=== PATIENT | male | born 1945 | race Caucasian/White ===

== ENCOUNTER → 2016-09-26 | Outpatient (CLI) | payer BC ==
--- NOTE | 2016-09-28 18:20 | SLEEPCENT ---
DATE OF PROCEDURE: 09/26/2016 ORDERED BY: Toma Lam Nocturnal polysomnography was performed for evaluation of sleep apnea syndrome symptoms in this patient who is experiencing excessive somnolence and nonrestorative sleep and with comorbidities of hypertension and ischemic heart disease. 6 hours and 25 minutes of data were reviewed. There were 340 minutes of sleep identified. Sleep latency was short at 21 minutes. Rapid eye movement (REM) latency was short at 87 minutes. Sleep architecture showed fair progression but fragmentation was seen early in the study. The overall sleep efficiency was 88.8%. Patient's EKG showed an irregular rhythm with a average rate of 74 beats per minute. EEG showed normal wave forms for wake and sleep. There were 138 respiratory events identified of 10 seconds in duration or greater for an apnea-hypopnea index of 24.4. The events were primarily obstructive, more frequent but not exclusive to the supine posture. Arousals from respiratory events occurred 5.5 times per hour. Oxygen desaturations were seen in the upper 80's. Remaining measures of sleep physiology were normal. IMPRESSION: Obstructive sleep apnea syndrome (G47.33). Apnea-hypopnea index 24.4. RECOMMENDATIONS: Patient should be encouraged to return to the sleep disorder center for pressure therapy. In the interim, alcohol and sedative avoidance should be practiced, and caution exercised during the operation of motor vehicles.
== END ==
LOC: M SLEEP 19:31
PROVIDERS: ATTEND Nurse Practitioner Adult Health
DX: G47.30 Sleep apnea, unspecified (principal)

== ENCOUNTER → 2017-01-28 | Outpatient (CLI) | payer BC ==
--- NOTE | 2017-02-01 18:56 | SLEEPCENT ---
DATE OF PROCEDURE: 01/28/2017 ORDERED BY: Toma Lam Nocturnal polysomnography was performed for titration of pressure therapy in this patient with obstructive sleep apnea syndrome. Apnea hypopnea index of 24.4. Auto CPAP had been attempted without success. For testing, the patient was fit with a ResMed Quattro full face mask of small size, 4 cm of water pressure were applied to the circuit and the lights were extinguished. 8 hours and 19 minutes of data were reviewed. There were 441 minutes of sleep identified. Sleep latency was short at 9.5 minutes. Rapid eye movement (REM) latency was normal at 70 minutes. Sleep architecture ws fair with some fragmentation. There were three to four REM periods appreciated. Overall sleep efficiency was 90.8%. The EKG showed a sinus rhythm with occasional PACs. Some respiratory variability was seen. Average heart rate 76 beats per minute. Heart rate range 60-80 beats per minute. EEG showed normal wave forms for wake and sleep stages. No focal events were identified. Persistence of respiratory events prompted an increase in CPAP pressure and despite optimal mask fit and minimal air leak the patient required a change to a bilevel device. Best sleep however was seen on a CPAP pressure of +12. There was some limb activity appreciated but limb movement arousals were few at 2.4 per hour. IMPRESSION: Obstructive sleep apnea syndrome (G47.33). RECOMMENDATIONS: Nightly use of pressure therapy at 12 cm of water should be sufficient to address the patient's respiratory events.
== END ==
LOC: M SLEEP 20:00
PROVIDERS: ATTEND Nurse Practitioner Adult Health
DX: G47.33 Obstructive sleep apnea (adult) (pediatric) (principal)

== ENCOUNTER → 2018-07-16 | Outpatient (CLI) | payer MEDICARE ==
[~2018-07-16] MED LIST: ISOVUE-370 76% 100ML VIAL (Q9967) As Ordered
== END ==
LOC: M RAD 10:27
DX: R91.8 Other nonspecific abnormal finding of lung field (principal); I74.5 Embolism and thrombosis of iliac artery; I71.4 Abdominal aortic aneurysm, without rupture; K55.1 Chronic vascular disorders of intestine
CPT/HCPCS: Q9967

== ENCOUNTER → 2019-01-25 | Outpatient (CLI) | payer MEDICARE ==
[2019-01-25 13:39] LABS: APPEARANCE, URINE HAZY (CLEAR); BACTERIA, URINE AUTO NEGATIVE (NEGATIVE); BILIRUBIN, URINE AUTO NEGATIVE (NEGATIVE); BLOOD, URINE BLOOD 1+ (NEGATIVE); COLOR, URINE YELLOW (YELLOW); GLUCOSE, URINE (UA) AUTO NEGATIVE (NEGATIVE); KETONE, URINE AUTO TRACE mg/dL (NEGATIVE); LEUKOCYTE ESTERASE, URINE AUTO NEGATIVE (NEGATIVE); MUCUS, URINE SMALL (NEGATIVE); NITRITE, URINE AUTO NEGATIVE (NEGATIVE); PROTEIN, URINE AUTO NEGATIVE (NEGATIVE); RBC, URINE AUTO 5 /HPF (0-3); SQUAMOUS EPITHELIAL CELL UR AU 0 /HPF (0-6); URIC ACID CRYSTALS SMALL; WBC, URINE AUTO 1 /HPF (0-3)
--- NOTE | 2019-01-25 13:44 | REP ---
KUB: SINGLE VIEW. HISTORY: Kidney stone. Comparison is made with CT imaging from July 16, 2018. FINDINGS: Bowel gas pattern is normal. Psoas margins and flank stripes are intact. No mass, organomegaly, or pathologic calcification is seen. There appear to be tiny calcific densities superimposed on the left kidney and possibly the right. No ureteral stone is seen. No evidence of bladder calculus. IMPRESSION: Tiny calcific densities overlie the left kidney, may be intrarenal calculi. Electronically Signed by Abhijeet Miner MD 01/25/2019 03:12 P
== END ==
LOC: M SMT 10:52
PROVIDERS: ATTEND Nurse Practitioner Family
DX: N40.0 Benign prostatic hyperplasia without lower urinary tract symptoms (principal); N20.0 Calculus of kidney; Z87.898 Personal history of other specified conditions
CPT/HCPCS: 36415; 51798; 74018; 81001; 87086; G0103; G0463

== ENCOUNTER → 2019-07-29 | Outpatient (REF) | payer MEDICARE ==
[2019-07-29 13:41] LABS: APPEARANCE, URINE CLEAR (CLEAR); BACTERIA, URINE AUTO NEGATIVE (NEGATIVE); BILIRUBIN, URINE AUTO NEGATIVE (NEGATIVE); BLOOD, URINE BLOOD 2+ (NEGATIVE); CALCIUM OXALATE CRYSTALS SMALL; COLOR, URINE YELLOW (YELLOW); GLUCOSE, URINE (UA) AUTO NEGATIVE (NEGATIVE); KETONE, URINE AUTO NEGATIVE (NEGATIVE); LEUKOCYTE ESTERASE, URINE AUTO NEGATIVE (NEGATIVE); MUCUS, URINE SMALL (NEGATIVE); NITRITE, URINE AUTO NEGATIVE (NEGATIVE); PROTEIN, URINE AUTO NEGATIVE (NEGATIVE); RBC, URINE AUTO 9 /HPF (0-3); SPECIFIC GRAVITY URINE AUTO 1.014 (1.002-1.035); SQUAMOUS EPITHELIAL CELL UR AU 0 /HPF (0-6); UROBILINOGEN, URINE AUTO 0.2 mg/dL (0.0-2.0); WBC, URINE AUTO 2 /HPF (0-3)
== END ==
LOC: M SMT 13:00
PROVIDERS: ATTEND Nurse Practitioner Family
DX: R31.29 Other microscopic hematuria (principal)
CPT/HCPCS: 51798; 81001; 87086; 88108; G0463

== ENCOUNTER → 2019-08-12 | Outpatient (CLI) | payer MEDICARE ==
[~2019-08-12] MED LIST changes: -ISOVUE-370 76% 100ML VIAL (Q9967) As Ordered; +ISOVUE-370 76% 100ML VIAL (Q9967) As Ordered ONE
--- NOTE | 2019-08-12 11:21 | REP ---
Clinical: Microscopic hematuria. Technique: Axial precontrast, contrast enhanced, and delayed images of the abdomen and pelvis using 100 ml Isovue 370 intravenous contrast material. Findings: Kidneys demonstrate few small punctate nonobstructing to renal calculi measuring up to 2 mm (left greater than right). Few small subcentimeter bilateral renal cysts measure up to 8 mm in left kidney. No renal mass lesion. Kidneys demonstrate symmetric enhancement and excretion patterns. No hydronephrosis. The bilateral ureters and bladder appear relatively normal. Prostate gland is mildly enlarged measuring 4.1 cm diameter with mild mass effect on the base of the bladder noted. Liver, spleen, pancreas, gallbladder, and bilateral adrenal glands are normal. The enteric system is without obstruction or acute inflammatory process. Scattered sigmoid diverticula noted without acute diverticulitis. Pelvis demonstrates mild prostatomegaly with mass effect on the base of the bladder. No ascites. No free air. No adenopathy. Atherosclerotic changes to the aorta and vasculature without aneurysm or dissection. Osseous structures demonstrate degenerative changes. Impression: 1. Few nonobstructing intrarenal calculi up to 2 mm (left greater than right) and few bilateral subcentimeter cysts up to 8 mm in left kidney. 2. Scattered sigmoid diverticula. 3. Prostatomegaly with mass effect on the base of the bladder. Electronically Signed by Hermilo Duncan MD 08/12/2019 11:13 A
== END ==
LOC: M RAD 10:06
PROVIDERS: ATTEND Nurse Practitioner Family
DX: N20.0 Calculus of kidney (principal)
CPT/HCPCS: 74178; Q9967

== ENCOUNTER → 2020-03-28 | Outpatient (CLI) | payer MEDICARE | LOC: M LABSMTC 10:05 | PROVIDERS: ATTEND Internal Medicine Cardiovascular Disease | DX: Z03.818 Encounter for observation for suspected exposure to other biological agents ruled out (principal); Z11.59 Encounter for screening for other viral diseases | CPT/HCPCS: C9803; U0003 ==

== ENCOUNTER → 2020-06-18 | Outpatient (CLI) | payer MEDICARE | LOC: M LABSMTC 10:49 | PROVIDERS: ATTEND Internal Medicine Cardiovascular Disease | DX: Z01.812 Encounter for preprocedural laboratory examination (principal); Z11.59 Encounter for screening for other viral diseases; Z20.828 Contact with and (suspected) exposure to other viral communicable diseases ==

== ENCOUNTER → 2020-09-21 | Outpatient (CLI) | payer MEDICARE ==
--- NOTE | 2020-09-21 15:01 | REPPI ---
INDICATION: KIDNEY STPNES COMPARISON: None. TECHNIQUE: Supine view of the abdomen and pelvis. FINDINGS: Evaluation for urinary tract calculi is limited and essentially incomplete due to significant overlying bowel gas and fecal material. No bowel obstruction. No organomegaly. No obvious significant abnormal calcification. No foreign body. IMPRESSION: Suboptimal evaluation for urinary tract calcifications. Consider noncontrast CT of the abdomen and pelvis if necessary. <Electronically signed by Hermilo Duncan > 09/21/20 [id number]
== END ==
LOC: M PLAIMG 09:22
PROVIDERS: ATTEND Urology
DX: N20.0 Calculus of kidney (principal)
CPT/HCPCS: 51798; 74018; G0463

== ENCOUNTER → 2020-11-30 | Outpatient (CLI) | payer MEDICARE ==
--- NOTE | 2020-12-01 10:36 | REP ---
INDICATION: ABNORMAL FINDING OF LUNG FIELD. COMPARISON: Comparison CT study [facility] July 24, 2020.. TECHNIQUE: Helical scanning is acquired. 3 mm axial images are generated. Coronal and sagittal MPR and coronal MIP images are generated. I logic protocol acquisition is acquired. 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 A right sided pacemaker power plant is seen in the subclavicular soft tissues. Axial images demonstrate that there are trans venous as well as trans pleural pacemaker leads the trans pleural pacemaker leads are on the left. There There are advanced emphysematous changes throughout the upper lobes and to a lesser extent in the lower lobes bilaterally. There are inspissated endobronchial secretions in the left lower lobe. There is a stable pleural based left lower lobe nodule measuring 5 mm. This is unchanged from prior abdominal CT images July 16, 2018. In the right lower lobe on page 73 of 117 in series 201 of today's study, there is a spiculated suspicious peribronchovascular pulmonary nodule measuring 16 x 13 x 18 mm in right to left by anteroposterior by craniocaudal dimension respectively. This was observed on the 07/24/2020 study. Today's study demonstrates a new nodular area of parenchymal density in the right lower lobe medially in the cardio vertebral angle. This nodular density measures 14 x 6 mm on transverse images and is displayed on page 67 through 71 of today's study. This was not apparent on July 24 2020 and therefore may be inflammatory. No other new nodule is seen. Smaller stable subcentimeter nodules are seen right middle lobe. And left lower lobe. There is no evidence of hilar or mediastinal mass or adenopathy. No pleural effusion is seen. Normal adrenal glands are observed. The visualized upper abdominal structures are unremarkable. There is mild bilateral gynecomastia.0 no bony destructive lesion is seen. IMPRESSION: 18 mm suspicious spiculated peribronchovascular pulmonary nodule right lower lobe rule out malignancy. There are other scattered subcentimeter pulmonary nodules bilaterally several of which are visible previously and unchanged. There is a new nodular opacity in the right lower lobe which may be inflammatory and there is evidence of bronchitis with inspissated endobronchial secretions in the left lower lobe. there is severe emphysema COPD. <Electronically signed by Isidoro Miner > 12/01/20 1038
== END ==
LOC: M RAD 12:57
PROVIDERS: ATTEND Internal Medicine Pulmonary Disease
DX: R91.1 Solitary pulmonary nodule (principal); R91.8 Other nonspecific abnormal finding of lung field

== ENCOUNTER → 2020-12-31 | Outpatient (CLI) | payer MEDICARE ==
[~2020-12-31] MED LIST changes: +ACET500T15 PO; +ASPI81TA26 PO; +BREO1INH3 INH; +CILO100T PO; +ELIQ5TAB PO; +FINA5TAB2 PO; +FLOM0.4C39 PO; -ISOVUE-370 76% 100ML VIAL (Q9967) As Ordered ONE; +LASI20TA3 PO; +LIDOCAINE 1% MDV 20ML VIAL As Ordered ONE; +LIDOCAINE 2% MDV 20ML VIAL As Ordered ONE; +LOSA50TA88 PO; +METO1TAB7 PO; +MIDAZOLAM INJ 2MG/2ML VIAL (J2250 PER 1MG) As Ordered ONE; +OMEP1CAP73 PO; +SIMV40TA20 PO; +SODIUM BICARBONATE 8.4% INJ 50MEQ 50 ML VIAL As Ordered ONE; +VENTAER INH; +flumazeniL 0.5 MG/5 ML VIAL As Ordered ONE
--- NOTE | 2020-12-31 10:24 | REP ---
INDICATION: POST RIGHT LUNG BIOPSY, 1 VIEW, PA EXPIRATION. COMPARISON: CT 11/30/2020. TECHNIQUE: Single expiratory view of the chest. FINDINGS: Right pneumothorax is visualized status post right lung biopsy. The air gap at the apex is approximately 4 cm. Heart is not enlarged. There are multiple sternal wires present. Metallic clips are seen in the superior left chest wall. IMPRESSION: Right pneumothorax status post right lung biopsy, the air gap at the apex is approximately 4 cm. <Electronically signed by Faustino Rowe > 12/31/20 1029
[2020-12-31 13:20] VITALS: BP 120/63
--- NOTE | 2020-12-31 15:52 | REP ---
INDICATION: POST RIGHT PNEUMO, 2 VIEW. COMPARISON: 12/31/2020 at 12:53 p.m.. TECHNIQUE: Two views chest. FINDINGS: There is a very small right apical pneumothorax unchanged, status post right lung biopsy. There is a small left pneumothorax, likely related to trans pleural pacemaker leads on the left. The lungs, heart and mediastinum are unchanged. IMPRESSION: Very small stable right apical pneumothorax status post right lung biopsy. There is a small left pneumothorax, likely related to trans pleural pacemaker leads. <Electronically signed by Faustino Rowe > 12/31/20 [id number]
--- NOTE | 2020-12-31 16:33 | REP ---
INDICATION: RLL NODULE. COMPARISON: None. TECHNIQUE: The procedure is performed by Rylie Francisco [facility], under the direct supervision of Dr. oRwe. The risks and benefits of the procedure were explained to the patient and informed consent was obtained both orally and written. Directly prior to the start of the procedure, a formal timeout was done in the exam room. The right lower lobe lung nodule was localized using CT guidance. Skin was prepped and draped in the usual sterile fashion. Five ml of 1% lidocaine 10 mg/ml was used as a local anesthetic. FINDINGS: Using CT guidance a 19/20 gauge coaxial needle biopsy system was inserted and advanced into the nodule. Six core biopsy samples were obtained and sent to the lab. CT images obtained directly after the biopsy demonstrated a pneumothorax. This was followed by serial chest x-rays, after the appropriate amount of monitored convalescence the patient was discharged from the department. The patient was giving specific instructions that if he should have any difficulty breathing to report directly to the ER. He will also be returning tomorrow for repeat chest x-ray. IMPRESSION: CT-guided right lower lobe lung nodule biopsy. <Electronically signed by Rylie Francisco > 12/31/20 1610 <Electronically signed by Faustino Rowe > 12/31/20 [id number]
--- NOTE | 2020-12-31 16:34 | REP ---
INDICATION: RIGHT PNEUMO, 1 VIEW. COMPARISON: 12/31/2020, 10:04 a.m. TECHNIQUE: Single expiratory view chest. FINDINGS: Previously noted right-sided pneumothorax has improved. There appears to be a very small right apical pneumothorax with an air gap of 1.4 cm. There is a vertical linear density inferiorly on the left. This could represent a skin fold or small left-sided pneumothorax. There are no other changes. IMPRESSION: Decreased right pneumothorax status post right lung biopsy. Air gap at the apex is 1.4 cm. Left inferior skin fold or pneumothorax. Follow-up radiograph will be performed. <Electronically signed by Faustino Rowe > 12/31/20 [id number]
== END ==
LOC: M IRPRO 08:00
PROVIDERS: ATTEND Internal Medicine Pulmonary Disease
DX: C34.31 Malignant neoplasm of lower lobe, right bronchus or lung (principal)
CPT/HCPCS: 32408; 87798; 88305; J2250

== ENCOUNTER → 2021-01-01 | Outpatient (CLI) | payer MEDICARE ==
[~2021-01-01] MED LIST changes: -LIDOCAINE 1% MDV 20ML VIAL As Ordered ONE; -LIDOCAINE 2% MDV 20ML VIAL As Ordered ONE; -MIDAZOLAM INJ 2MG/2ML VIAL (J2250 PER 1MG) As Ordered ONE; -SODIUM BICARBONATE 8.4% INJ 50MEQ 50 ML VIAL As Ordered ONE; -flumazeniL 0.5 MG/5 ML VIAL As Ordered ONE
--- NOTE | 2021-01-01 10:08 | REP ---
INDICATION: RLL NODULE/REPEAT XRAY COMPARISON: 12/31/2020 TECHNIQUE: PA and lateral. FINDINGS: Miniscule right apical pneumothorax is barely visible. Small left apical pneumothorax of approximately 10% is unchanged. Mediastinum and cardiac silhouette are stable. Bibasilar atelectasis and possible small pleural reactions are again suggested. IMPRESSION: Pneumothoraces (left greater than right) similar to prior examination. Mild bibasilar atelectasis and possible small pleural reactions. <Electronically signed by Hermilo Duncan > 01/01/21 1009
== END ==
LOC: M RAD 09:41
PROVIDERS: ATTEND Internal Medicine Pulmonary Disease
DX: J93.9 Pneumothorax, unspecified (principal); J98.19 Other pulmonary collapse

== ENCOUNTER → 2021-01-06 | Outpatient (CLI) | payer MEDICARE ==
--- NOTE | 2021-01-06 15:49 | REPPI ---
INDICATION: J95.811 POSTPROCEDUREAL PNEUMOTHORAX COMPARISON: 01/01/2021, 02/25/2008 TECHNIQUE: PA and lateral. FINDINGS: The mediastinum and cardiac silhouette are stable and again demonstrate prior sternotomy and pacemaker. Lung quiñones demonstrate advanced COPD/emphysematous changes along with small residual left apical pneumothorax decreased in size when compared to 01/01/2021. IMPRESSION: 1. Small residual left apical pneumothorax. <Electronically signed by Hermilo Duncan > 01/06/21 [id number]
== END ==
LOC: M PLAIMG 15:11
PROVIDERS: ATTEND Internal Medicine Pulmonary Disease
DX: J95.811 Postprocedural pneumothorax (principal)

== ENCOUNTER → 2021-03-11 | Outpatient (CLI) | payer MEDICARE ==
--- NOTE | 2021-03-11 11:35 | RADONC.CN ---
Radiation Oncology Hx/Consult Radiation Oncology Consult Date of Service: Mar 11, 2021 Pt Identifier Kalin Galindo is a 75 year old male former smoker with a [id number] stage IA2 NSCLC of the RLL. He is not a surgical candidate due to cardiac comorbidities, and so is seen for consideration of SBRT. Diagnosis/Treatment History Oncologic History 2020 Underwent AICD exchange, had a CT scan prior to this which showed a 1 cm RLL nodule. This was followed by Dr. Hawley culminating in biopsy on 12/31 20 showing adenocarcinoma PDL1 10%. PET-CT on 02/12/20 was negative for norman or distant metastases. He was evaluated by Dr. Angelo who deemed him inoperable. 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 Kalin reports he has no significant chest pain, he does have some stable HAINES. He had some bleeding post-biopsy which resolved. No hemoptysis at present. He has lost some weight and has some fatigue. Past Medical History: BPH CAD GERD HPL PVD Past Surgical History: PCI CABG AICD (Biotronik) Family History: Father colon cancer Social History: 60 pack year former smoker Drinks on occasion 1-2 drinks Allergies / Meds Allergies: Coded Allergies: No Known Allergies (Verified Allergy, Unknown, 12/31/20) Home Meds Reported Medications Acetaminophen (Acetaminophen) 500 Mg Tablet, 500 MG PO Q6H PRN for PAIN / FEVER 12/31/20 Furosemide (Lasix) 20 Mg Tablet, 20 MG PO DAILY 12/29/20 Metoprolol Succinate (Metoprolol Succinate) 50 Mg Tab.er.24h, 50 MG PO BID 12/29/20 Aspirin (Aspirin EC) 81 Mg Tablet.dr, 81 MG PO DAILY, TAB 12/29/20 Apixaban (Eliquis) 5 Mg Tablet, 5 MG PO BID 12/29/20 Losartan Potassium (Losartan Potassium) 50 Mg Tablet, 50 MG PO BID 12/29/20 Finasteride (Finasteride) 5 Mg Tablet, 5 MG PO QHS 12/29/20 Simvastatin (Simvastatin) 40 Mg Tablet, 40 MG PO QHS 12/29/20 Cilostazol (Cilostazol) 100 Mg Tablet, 100 MG PO BID 12/29/20 Tamsulosin HCl (Flomax) 0.4 Mg Capsule, 0.4 MG PO QHS 12/29/20 Omeprazole (Omeprazole) 20 Mg Capsule.dr, 20 MG PO QHS 12/29/20 Fluticasone/Vilanterol (Breo Ellipta 200-25 Mcg INH) 1 Each Blst.w.dev, 1 PUFF INH DAILY, INHALER 12/29/20 Albuterol Sulfate (Ventolin Hfa) 18 Gm Hfa.aer.ad, 2 PUFF INH Q4HP PRN for wheezing 12/29/20 Review of Systems Constitutional: Reports: Fatigue, Weight Loss Eyes: Denies: Pain HEENT: Denies: Head Aches Pulmonary: Reports: Dyspnea; Denies: Cough, Pleuritic Chest Pain Cardiovascular: Denies: Chest Pain, Palpitations, Edema Gastrointestinal: Denies: Abdominal Pain Hematologic: Reports: Bruising Musculoskeletal: Denies: Back pain Neurological: Denies: Weakness, Numbness Psych: Reports: Mood Normal Vital Signs Wt 127 lbs T 96.2 P 62 RR 18 BP 149/72 O2 99% Pain 0 Fatigue 0 General Exam: Positive: Alert, Cooperative, No Acute Distress Eye Exam: Positive: PERRLA, EOMI ENT EXAM: Positive: Mucous membr. moist/pink, Pharynx Normal Neck Exam: Negative: Supple, JVD, Lymphadenopathy Chest Exam: Positive: Normal air movement; Negative: Rales, Rhonchi, Wheezing Heart Exam: Positive: Rate Normal, Regular Rhythm Abdomen Exam: Positive: Soft; Negative: Tenderness, Mass Extremity Exam: Negative: Edema, Tenderness Skin Exam: Positive: Nl turgor and temperature; Negative: Rash Neuro Exam: Positive: Normal Gait, Normal Speech, Cranial Nerves 3-12 NL Psych Exam: Positive: Mental status NL, Mood NL, Memory Intact Diagnostic and Laboratory Diagnostic Review Radiologic images, relevant labs and pathology reports were personally reviewed and discussed with Mr. Galindo. Assessment and Plan Impression Mr. Galindo is a 75 year old male former smoker with a [id number] stage IA2 NSCLC of the RLL. He is not a surgical candidate due to cardiac comorbidities, and so is seen for consideration of SBRT. Stage [id number] stage IA2 NSCLC RLL Performance Status ECOG 0 Plan We had an extensive discussion with Mr. Galindo regarding the diagnosis at hand and available therapeutic options. Kalin is doing well overall, he does have a significant cardiac history including AICD which is ipsilateral to the lesion. We will need to arrange interrogation of the device before and after completion of RT per AAPM [id number]. I reviewed Kalin's imaging, and he has a peripheral small nodule in the RLL, which is a good target for SBRT. I recommend 60 Gy in 5 fractions with 4DCT/ITV/DCA planning. I explained that the favorable location reduces the risk of chest wall toxicity. Pneumonitis risk is ~5-8%. We discussed the logistics of receiving radiation therapy in detail including the need for a 1-time planning session. This can occur in the next 1-2 weeks. We reviewed the side effects of treatment including fatigue, pneumonitis and late fibrosis. After discussing the risks, benefits and alternatives to radiation therapy, Mr. Galindo was amenable to pursuing radiotherapy. All questions were answered to the patient's satisfaction. We instructed the patient that if there were any questions,concerns or changes in clinical status in the interim to contact us. Recommendations SBRT 60 Gy in 5 fractions as discussed above Simulation in the coming 1-2 weeks Will arrange AICD interrogation as discussed above Billing Statement Total time of [46] minutes was spent preparing for the visit [3], obtaining HPI [11], examining the patient [3], reviewing diagnostic tests [6], discussing management options [12], coordinating care [1], and writing this note [10]. DAV BERTRAND MD Mar 11, 2021 11:35
== END ==
LOC: M ONCR 08:51
PROVIDERS: ATTEND General Practice
DX: C34.31 Malignant neoplasm of lower lobe, right bronchus or lung (principal); E78.5 Hyperlipidemia, unspecified; I25.10 Atherosclerotic heart disease of native coronary artery without angina pectoris; I73.9 Peripheral vascular disease, unspecified; K21.9 Gastro-esophageal reflux disease without esophagitis; N40.0 Benign prostatic hyperplasia without lower urinary tract symptoms; Z79.899 Other long term (current) drug therapy; Z80.0 Family history of malignant neoplasm of digestive organs; Z87.891 Personal history of nicotine dependence; Z95.1 Presence of aortocoronary bypass graft; Z95.810 Presence of automatic (implantable) cardiac defibrillator

== ENCOUNTER 2021-04-09 12:19 | Outpatient (RCR) | payer MEDICARE ==
[~2021-04-09 12:19] MED LIST changes: +LOSA50TA28 PO; -LOSA50TA88 PO
== END 2021-04-13 ==
LOC: M ONCR 12:19
PROVIDERS: ATTEND General Practice
DX: C34.31 Malignant neoplasm of lower lobe, right bronchus or lung (principal)

== ENCOUNTER → 2021-07-05 | Outpatient (CLI) | payer MEDICARE ==
[~2021-07-05] MED LIST changes: +ISOVUE-370 76% 100ML VIAL As Ordered ONE; -LOSA50TA28 PO; +LOSA50TA88 PO
--- NOTE | 2021-07-05 15:40 | REP ---
INDICATION: STAGE 1 NSCLC COMPARISON: Multiple the latest 11/30/2020. The CT component of the prior PET-CT of 02/11/2021 cannot be accurately compared today's diagnostic chest CT. That examination was obtained as a non diagnostic CT for the purposes of co-registration and image fusion with PET. TECHNIQUE: Standard helical technique after the intravenous administration of 100 cc Isovue 370 FINDINGS: There is no evidence of mediastinal or hilar adenopathy. There are no pleural or pericardial effusions. The imaged upper abdomen is within normal limits. The imaged osseous structures are stable. Evaluation of the lung quiñones shows multiple thicker spiculations arising from the spiculated right lower lobe nodule the overall size of the nodule does appear to have slightly decreased today measuring 1.2 x 0.9 cm previously 1.9 x 1.3 cm measured in the same dimensions. The small spiculated nodule seen previously in the right lower lobe medial basal segment which measured 8 mm is no longer present. The 1.4 cm sized asymmetric density seen abutting that nodule is also no longer present. The nodule seen in the right middle lobe is unchanged. There is a pleural based left lower lobe nodule which is stable. The small nodule seen previously in the left CP angle is unchanged. The additional nodule seen more superiorly in the left lower lobe is no longer present. Once again, there are marked emphysematous changes status quo. IMPRESSION: The dominant spiculated nodule in the right lower lobe has morphologically changed as described above. Although the nodule itself has gotten smaller there has been a change in the appearance of the spiculations as described above. In addition, there has been some improvement in lung nodule seen on the prior exam which are no longer present while other nodules appear stable. <Electronically signed by Brady Tinsley > 07/05/21 1364
== END ==
LOC: M RAD 12:56
PROVIDERS: ATTEND General Practice
DX: C34.31 Malignant neoplasm of lower lobe, right bronchus or lung (principal)
CPT/HCPCS: 71260; Q9967

== ENCOUNTER → 2021-07-13 | Outpatient (CLI) | payer MEDICARE ==
[~2021-07-13] MED LIST changes: -ISOVUE-370 76% 100ML VIAL As Ordered ONE; +LOSA50TA28 PO; -LOSA50TA88 PO
== END ==
LOC: M ONCR 08:51
PROVIDERS: ATTEND General Practice
DX: C34.31 Malignant neoplasm of lower lobe, right bronchus or lung (principal); Z92.3 Personal history of irradiation; Z87.891 Personal history of nicotine dependence; Z79.82 Long term (current) use of aspirin; Z79.899 Other long term (current) drug therapy

== ENCOUNTER → 2021-07-31 | Outpatient (REF) | LOC: M LABSMTC 09:10 | PROVIDERS: ATTEND Pediatrics | DX: Z11.52 Encounter for screening for COVID-19 (principal); Z20.822 Contact with and (suspected) exposure to COVID-19 ==

== ENCOUNTER → 2021-12-22 | Outpatient (CLI) | payer MEDICARE ==
[2021-12-22 14:43] LABS: ALBUMIN 2.9 GM/DL (3.2-5.2); ALT/SGPT 15 U/L (12-78); BILIRUBIN,TOTAL 0.3 MG/DL (0.2-1.0); BLOOD UREA NITROGEN 12 MG/DL (7-18); CALCIUM LEVEL 9.5 MG/DL (8.8-10.2); CARBON DIOXIDE LEVEL 28 MEQ/L (21-32); CHLORIDE LEVEL 115 MEQ/L (98-107); CREATININE FOR GFR 0.96 MG/DL (0.70-1.30); GLOMERULAR FILTRATION RATE > 60.0 (>42); GLUCOSE, FASTING 100 MG/DL (70-100); SODIUM LEVEL 147 MEQ/L (136-145); TOTAL PROTEIN 6.4 GM/DL (6.4-8.2)
== END ==
LOC: M ONCR 13:19
PROVIDERS: ATTEND General Practice
DX: C34.31 Malignant neoplasm of lower lobe, right bronchus or lung (principal)

== ENCOUNTER → 2021-12-29 | Outpatient (CLI) | payer MEDICARE ==
[~2021-12-29] MED LIST changes: +ISOVUE-370 76% 100ML VIAL As Ordered ONE
== END ==
LOC: M RAD 09:32
PROVIDERS: ATTEND General Practice
DX: C34.31 Malignant neoplasm of lower lobe, right bronchus or lung (principal); R91.1 Solitary pulmonary nodule
CPT/HCPCS: 71260; Q9967

== ENCOUNTER → 2022-01-05 | Outpatient (CLI) | payer MEDICARE ==
[~2022-01-05] MED LIST changes: -ISOVUE-370 76% 100ML VIAL As Ordered ONE
== END ==
LOC: M ONCR 08:57
PROVIDERS: ATTEND General Practice
DX: C34.31 Malignant neoplasm of lower lobe, right bronchus or lung (principal); Z79.899 Other long term (current) drug therapy; Z87.891 Personal history of nicotine dependence; Z92.3 Personal history of irradiation; Z95.810 Presence of automatic (implantable) cardiac defibrillator

== ENCOUNTER → 2022-06-30 | Outpatient (CLI) | payer MEDICARE ==
[~2022-06-30] MED LIST changes: -CILO100T PO; +CILO100T3 PO; +ISOVUE-370 76% 100ML VIAL As Ordered ONE
== END ==
LOC: M RAD 13:19
PROVIDERS: ATTEND General Practice
DX: C34.31 Malignant neoplasm of lower lobe, right bronchus or lung (principal); J44.9 Chronic obstructive pulmonary disease, unspecified
CPT/HCPCS: 71260; Q9967

== ENCOUNTER → 2022-07-11 | Outpatient (CLI) | payer MEDICARE ==
[~2022-07-11] MED LIST changes: -ISOVUE-370 76% 100ML VIAL As Ordered ONE
== END ==
LOC: M ONCR 08:47
PROVIDERS: ATTEND General Practice
DX: C34.11 Malignant neoplasm of upper lobe, right bronchus or lung (principal); Z92.3 Personal history of irradiation; Z79.82 Long term (current) use of aspirin; Z79.01 Long term (current) use of anticoagulants; Z79.899 Other long term (current) drug therapy; Z79.51 Long term (current) use of inhaled steroids; Z87.891 Personal history of nicotine dependence

== ENCOUNTER → 2022-08-16 | Outpatient (CLI) | payer MEDICARE | LOC: M PLARAD 13:17 | PROVIDERS: ATTEND Radiology Radiation Oncology | DX: C34.31 Malignant neoplasm of lower lobe, right bronchus or lung (principal) | CPT/HCPCS: 78815; A9552 ==

== ENCOUNTER → 2022-08-25 | Outpatient (CLI) | payer MEDICARE | LOC: M ONCR 09:25 | PROVIDERS: ATTEND General Practice | DX: C34.31 Malignant neoplasm of lower lobe, right bronchus or lung (principal); R22.1 Localized swelling, mass and lump, neck; Z79.01 Long term (current) use of anticoagulants; Z79.82 Long term (current) use of aspirin; Z79.899 Other long term (current) drug therapy; Z92.3 Personal history of irradiation ==

== ENCOUNTER → 2022-09-19 | Outpatient (CLI) | payer MEDICARE ==
[~2022-09-19] MED LIST changes: +CULT10CA4 PO; +ELIQ2.5T PO; +LIDOCAINE 1% MDV 20ML VIAL As Ordered ONE; +MEKI2TAB2 PO; +PENI1TAB17; +SIMV10TA21 PO; +TAFI75CA2 PO; +VITMTA PO
[2022-09-19 12:50] VITALS: BP 118/59
== END ==
LOC: M IRPRO 11:13
PROVIDERS: ATTEND Radiology Radiation Oncology
DX: C77.0 Secondary and unspecified malignant neoplasm of lymph nodes of head, face and neck (principal); C34.31 Malignant neoplasm of lower lobe, right bronchus or lung

== ENCOUNTER 2022-11-15 18:45 | Inpatient (IN) | payer MEDICARE ==
[~2022-11-15] VITALS: Ht 165.1 cm; Wt 50.0 kg
[2022-11-15] MEDS: DEXTROMETHORPHAN 60MG/10ML SUSP 90ML BTL(DELSYM) PO SCH
[~2022-11-15 18:45] MED LIST changes: +ACET-897 PO; +LEVO750T14 PO; -LIDOCAINE 1% MDV 20ML VIAL As Ordered ONE; +LOPE-39 PO; +PEPC1TAB5 PO
[2022-11-15] MEDS: CHLORHEXIDINE GLUCONATE 0.12 % 15ML UDC (PERIDEX ORAL RINSE) MT SCH (21:00)
[2022-11-15 21:02] VITALS: BP 130/66
[2022-11-15] MEDS ORDERED: NS 1,000 ML IV SCH (22:10)
[2022-11-15] MEDS ORDERED: HYDROMORPHONE HCL 0.5 MG/ 0.5 ML SYRINGE IV PRN (22:10)
[2022-11-15 23:17] LABS: BASO % 0.1 % (0.0-1.0); HEMATOCRIT 30.8 % (42.0-52.0); HEMOGLOBIN 9.8 g/dl (13.5-17.5); LYMPH # 0.4 10^3/uL (1.5-5.0); LYMPH % 3.4 % (24.0-44.0); MEAN CORPUSCULAR HEMOGLOBIN 29.1 pg (27.0-33.0); MEAN CORPUSCULAR HGB CONC 31.8 g/dl (32.0-36.5); MEAN CORPUSCULAR VOLUME 91.4 fl (80.0-96.0); MONO # 0.3 10^3/uL (0.0-0.8); MONO % 2.5 % (2.0-8.0); NEUTROPHILS # 9.6 10^3/uL (1.5-8.5); NEUTROPHILS % 93.2 % (36.0-66.0); PLATELET COUNT, AUTOMATED 281 10^3/uL (150-450); RED BLOOD COUNT 3.37 10^6/uL (4.30-6.10); WHITE BLOOD COUNT 10.3 10^3/uL (4.0-10.0)
[2022-11-15] MEDS ORDERED: ALBU8.5H INH (23:21)
[2022-11-15] MEDS ORDERED: LOPE2TAB12 PO (23:21)
[2022-11-15] MEDS ORDERED: SIMV10TA21 PO (23:21)
[2022-11-15] MEDS ORDERED: VITMTA PO (23:21)
[2022-11-15] MEDS ORDERED: PENI1TAB17 PO (23:21)
[2022-11-15] MEDS ORDERED: FAMO20TA4 PO (23:21)
[2022-11-15] MEDS ORDERED: ELIQ2.5T PO (23:21)
[2022-11-15] MEDS ORDERED: CULTCAP2 PO (23:21)
[2022-11-15] MEDS ORDERED: HOME MED LIST COMPLETE! XX SCH (23:25)
[2022-11-15] MEDS: methylPREDNISolone 40MG 1ML VIAL IV SCH (23:29)
[2022-11-15 23:36] LABS: BLOOD UREA NITROGEN 29 MG/DL (9-23); CALCIUM LEVEL 7.9 MG/DL (8.3-10.6); CARBON DIOXIDE LEVEL 25 MMOL/L (20-31); CHLORIDE LEVEL 111 MMOL/L (98-107); CREATININE FOR GFR 0.74 MG/DL (0.70-1.30); GLOMERULAR FILTRATION RATE > 60.0 (>42); GLUCOSE, FASTING 135 MG/DL (74-106); MAGNESIUM LEVEL 1.6 MG/DL (1.8-2.4); PHOSPHORUS LEVEL 2.5 MG/DL (2.4-5.1); POTASSIUM SERUM 4.2 MMOL/L (3.5-5.1); SODIUM LEVEL 142 MMOL/L (136-145)
[2022-11-16] VITALS: BP 131/69
[2022-11-16] MEDS ORDERED: ALBUTEROL SULFATE 2.5MG/0.5ML INH NEB SOLN NEB SCH
[2022-11-16] MEDS: ALBUTEROL SULFATE 2.5MG/0.5ML INH NEB SOLN NEB SCH ×2 (01:28→08:01)
[2022-11-16 04:00] VITALS: BP 141/71
[2022-11-16] MEDS ORDERED: ISOVUE-370 76% 100ML VIAL As Ordered ONE (04:57)
[2022-11-16 05:36] LABS: BLOOD UREA NITROGEN 29 MG/DL (9-23); CALCIUM LEVEL 7.8 MG/DL (8.3-10.6); CARBON DIOXIDE LEVEL 23 MMOL/L (20-31); CHLORIDE LEVEL 112 MMOL/L (98-107); CREATININE FOR GFR 0.63 MG/DL (0.70-1.30); GLOMERULAR FILTRATION RATE > 60.0 (>42); GLUCOSE, FASTING 156 MG/DL (74-106); POTASSIUM SERUM 3.9 MMOL/L (3.5-5.1); SODIUM LEVEL 144 MMOL/L (136-145)
[2022-11-16] MEDS: methylPREDNISolone 40MG 1ML VIAL IV SCH ×3 (06:38→14:31)
[2022-11-16 08:00] VITALS: BP 146/66
[2022-11-16 08:23] LABS: ALBUMIN 1.7 G/DL (3.2-5.2); ALKALINE PHOSPHATASE 137 U/L (46-116); ALT/SGPT 17 U/L (7.0-40); AST/SGOT 22 U/L (<34); BILIRUBIN,TOTAL 0.3 MG/DL (0.3-1.2); BLOOD UREA NITROGEN 29 MG/DL (9-23); CALCIUM LEVEL 7.8 MG/DL (8.3-10.6); CARBON DIOXIDE LEVEL 24 MMOL/L (20-31); CHLORIDE LEVEL 112 MMOL/L (98-107); CREATININE FOR GFR 0.67 MG/DL (0.70-1.30); GLOMERULAR FILTRATION RATE > 60.0 (>42); GLUCOSE, FASTING 145 MG/DL (74-106); MAGNESIUM LEVEL 1.7 MG/DL (1.8-2.4); POTASSIUM SERUM 4.3 MMOL/L (3.5-5.1); SODIUM LEVEL 144 MMOL/L (136-145); TOTAL PROTEIN 5.1 G/DL (5.7-8.2)
[2022-11-16 08:29] LABS: INR 1.08; PROTHROMBIN TIME 14.2 SECONDS (12.5-14.5)
[2022-11-16] MEDS: DOXYCYCLINE HYCLATE 100MG TABLET PO SCH ×2 (08:38→22:02)
[2022-11-16] MEDS: cefTRIAXone SOD 1 GM in D5W MINI-BAG PLUS 50 ML IV SCH (08:38)
[2022-11-16] MEDS: PANTOPRAZOLE 40MG VIAL IV SCH (08:39)
[2022-11-16] MEDS: DEXTROMETHORPHAN 60MG/10ML SUSP 90ML BTL(DELSYM) PO SCH ×2 (08:39→22:03)
[2022-11-16 08:50] LABS: HEMOGLOBIN A1c 5.6 % (4.0-6.0)
[2022-11-16] MEDS ORDERED: PENICILLIN V POTASSIUM 500 MG TAB PO SCH (09:00)
[2022-11-16] MEDS: CHLORHEXIDINE GLUCONATE 0.12 % 15ML UDC (PERIDEX ORAL RINSE) MT SCH (10:24)
[2022-11-16 11:46] LABS: IRON (FE) 19 UG/DL (65-175); PERCENT SATURATION 10.1 % (19.7-50.0); TOTAL IRON BINDING CAPACITY 189 UG/DL (250-425)
[2022-11-16 12:00] VITALS: BP 133/63
[2022-11-16] MEDS ORDERED: MAG SULF 1GM/100ML (MAG RUN) 1 GM in IV 1 EA IV ONE (12:00)
[2022-11-16] MEDS ORDERED: IPRATROPIUM 0.5MG/ALBUTEROL 2.5MG INH SOL UD 3ML (DUONEB) NEB SCH (12:00)
[2022-11-16] MEDS ORDERED: LOPERAMIDE 2 MG CAPLET PO PRN (12:00)
[2022-11-16] MEDS: METOPROLOL SUCC (TopROL XL) 50MG **XL** TAB PO SCH ×2 (14:32→22:02)
[2022-11-16] MEDS: LOSARTAN 50MG TABLET PO SCH ×2 (14:32→22:03)
[2022-11-16 16:00] VITALS: BP 128/60
[2022-11-16 20:00] VITALS: BP 128/60
[2022-11-16] MEDS: FINASTERIDE 5MG TAB PO SCH (22:02)
[2022-11-16] MEDS: TAMSULOSIN 0.4 MG CAP PO SCH (22:02)
[2022-11-16] MEDS: SIMVASTATIN 10 MG TAB PO SCH (22:08)
[2022-11-17] VITALS (7 sets, daily range): BP systolic 121–144; BP diastolic 57–81
[2022-11-17 04:56] LABS: HEMATOCRIT 33.9 % (42.0-52.0); HEMOGLOBIN 10.9 g/dl (13.5-17.5); MEAN CORPUSCULAR HEMOGLOBIN 29.3 pg (27.0-33.0); MEAN CORPUSCULAR HGB CONC 32.2 g/dl (32.0-36.5); MEAN CORPUSCULAR VOLUME 91.1 fl (80.0-96.0); PLATELET COUNT, AUTOMATED 392 10^3/uL (150-450); RED BLOOD COUNT 3.72 10^6/uL (4.30-6.10); WHITE BLOOD COUNT 10.9 10^3/uL (4.0-10.0)
[2022-11-17 05:26] LABS: ALBUMIN 1.7 G/DL (3.2-5.2); ALKALINE PHOSPHATASE 158 U/L (46-116); ALT/SGPT 52 U/L (7.0-40); AST/SGOT 94 U/L (<34); BILIRUBIN,TOTAL 0.3 MG/DL (0.3-1.2); BLOOD UREA NITROGEN 20 MG/DL (9-23); CALCIUM LEVEL 8.1 MG/DL (8.3-10.6); CARBON DIOXIDE LEVEL 25 MMOL/L (20-31); CHLORIDE LEVEL 110 MMOL/L (98-107); CREATININE FOR GFR 0.73 MG/DL (0.70-1.30); GLOMERULAR FILTRATION RATE > 60.0 (>42); GLUCOSE, FASTING 123 MG/DL (74-106); POTASSIUM SERUM 3.8 MMOL/L (3.5-5.1); SODIUM LEVEL 144 MMOL/L (136-145)
[2022-11-17] MEDS: methylPREDNISolone 40MG 1ML VIAL IV SCH ×2 (06:03→18:20)
[2022-11-17] MEDS: DEXTROMETHORPHAN 60MG/10ML SUSP 90ML BTL(DELSYM) PO SCH ×2 (08:31→20:56)
[2022-11-17] MEDS: cefTRIAXone SOD 1 GM in D5W MINI-BAG PLUS 50 ML IV SCH (08:31)
[2022-11-17] MEDS: METOPROLOL SUCC (TopROL XL) 50MG **XL** TAB PO SCH ×2 (08:32→20:57)
[2022-11-17] MEDS: DOXYCYCLINE HYCLATE 100MG TABLET PO SCH ×2 (08:32→20:56)
[2022-11-17] MEDS: PANTOPRAZOLE 40MG VIAL IV SCH (08:32)
[2022-11-17] MEDS: LOSARTAN 50MG TABLET PO SCH ×2 (08:32→20:57)
[2022-11-17] MEDS: DOCUSATE SODIUM 100MG CAPSULE PO SCH ×2 (09:00→20:57)
[2022-11-17] MEDS ORDERED: DEXA4TA PO ×2 (09:59→10:15)
[2022-11-17] MEDS: FERROUS SULFATE 325MG TAB PO SCH ×2 (11:22→20:57)
[2022-11-17] MEDS: FINASTERIDE 5MG TAB PO SCH (20:56)
[2022-11-17] MEDS: SIMVASTATIN 10 MG TAB PO SCH (20:56)
[2022-11-17] MEDS: TAMSULOSIN 0.4 MG CAP PO SCH (20:57)
[2022-11-17] MEDS: SENNA 8.6 MG TAB (SENOKOT) PO SCH (20:57)
[2022-11-18 06:00] VITALS: BP 133/65
[2022-11-18 06:01] LABS: HEMATOCRIT 33.4 % (42.0-52.0); HEMOGLOBIN 10.5 g/dl (13.5-17.5); MEAN CORPUSCULAR HEMOGLOBIN 28.8 pg (27.0-33.0); MEAN CORPUSCULAR HGB CONC 31.4 g/dl (32.0-36.5); MEAN CORPUSCULAR VOLUME 91.8 fl (80.0-96.0); PLATELET COUNT, AUTOMATED 315 10^3/uL (150-450); RED BLOOD COUNT 3.64 10^6/uL (4.30-6.10); WHITE BLOOD COUNT 10.9 10^3/uL (4.0-10.0)
[2022-11-18] MEDS: methylPREDNISolone 40MG 1ML VIAL IV SCH (06:06)
[2022-11-18 06:37] LABS: ALBUMIN 1.6 G/DL (3.2-5.2); ALKALINE PHOSPHATASE 160 U/L (46-116); ALT/SGPT 52 U/L (7.0-40); AST/SGOT 53 U/L (<34); BILIRUBIN,TOTAL 0.5 MG/DL (0.3-1.2); BLOOD UREA NITROGEN 19 MG/DL (9-23); CALCIUM LEVEL 8.1 MG/DL (8.3-10.6); CARBON DIOXIDE LEVEL 25 MMOL/L (20-31); CHLORIDE LEVEL 110 MMOL/L (98-107); CREATININE FOR GFR 0.66 MG/DL (0.70-1.30); GLOMERULAR FILTRATION RATE > 60.0 (>42); GLUCOSE, FASTING 127 MG/DL (74-106); POTASSIUM SERUM 3.8 MMOL/L (3.5-5.1); SODIUM LEVEL 142 MMOL/L (136-145); TOTAL PROTEIN 4.7 G/DL (5.7-8.2)
[2022-11-18 07:00] VITALS: BP 132/68
[2022-11-18] MEDS: DOCUSATE SODIUM 100MG CAPSULE PO SCH ×2 (09:00→20:43)
[2022-11-18] MEDS: METOPROLOL SUCC (TopROL XL) 50MG **XL** TAB PO SCH ×2 (09:22→20:43)
[2022-11-18] MEDS: FERROUS SULFATE 325MG TAB PO SCH ×2 (09:23→20:43)
[2022-11-18] MEDS: LOSARTAN 50MG TABLET PO SCH ×2 (09:23→20:43)
[2022-11-18] MEDS: PANTOPRAZOLE 40MG TAB (PROTONIX) PO SCH (09:24)
[2022-11-18] MEDS: DOXYCYCLINE HYCLATE 100MG TABLET PO SCH ×2 (09:24→20:42)
[2022-11-18] MEDS: DEXTROMETHORPHAN 60MG/10ML SUSP 90ML BTL(DELSYM) PO SCH ×2 (09:25→20:42)
[2022-11-18] MEDS: cefTRIAXone SOD 1 GM in D5W MINI-BAG PLUS 50 ML IV SCH (09:26)
[2022-11-18 14:15] VITALS: BP 131/66
[2022-11-18] MEDS: ACETAMINOPHEN TAB 650MG DOSE (2X325MG) PO PRN (18:51)
[2022-11-18] MEDS: SENNA 8.6 MG TAB (SENOKOT) PO SCH (20:42)
[2022-11-18] MEDS: SIMVASTATIN 10 MG TAB PO SCH (20:43)
[2022-11-18] MEDS: TAMSULOSIN 0.4 MG CAP PO SCH (20:43)
[2022-11-18] MEDS: FINASTERIDE 5MG TAB PO SCH (20:43)
[2022-11-18 22:00] VITALS: BP 143/68
[2022-11-19 00:19] VITALS: O2SAT 90
[2022-11-19] MEDS: ALBUTEROL SULFATE 2.5MG/0.5ML INH NEB SOLN NEB PRN (05:25)
[2022-11-19 06:00] VITALS: BP 110/52
[2022-11-19 06:52] LABS: HEMATOCRIT 33.8 % (42.0-52.0); HEMOGLOBIN 10.9 g/dl (13.5-17.5); MEAN CORPUSCULAR HGB CONC 32.2 g/dl (32.0-36.5); MEAN CORPUSCULAR VOLUME 89.9 fl (80.0-96.0); PLATELET COUNT, AUTOMATED 313 10^3/uL (150-450); RED BLOOD COUNT 3.76 10^6/uL (4.30-6.10); WHITE BLOOD COUNT 9.7 10^3/uL (4.0-10.0)
[2022-11-19 07:23] LABS: ALBUMIN 1.6 G/DL (3.2-5.2); ALKALINE PHOSPHATASE 210 U/L (46-116); ALT/SGPT 76 U/L (7.0-40); AST/SGOT 81 U/L (<34); BLOOD UREA NITROGEN 16 MG/DL (9-23); CALCIUM LEVEL 8.1 MG/DL (8.3-10.6); CARBON DIOXIDE LEVEL 25 MMOL/L (20-31); CHLORIDE LEVEL 108 MMOL/L (98-107); CREATININE FOR GFR 0.77 MG/DL (0.70-1.30); GLOMERULAR FILTRATION RATE > 60.0 (>42); GLUCOSE, FASTING 121 MG/DL (74-106); POTASSIUM SERUM 3.1 MMOL/L (3.5-5.1); SODIUM LEVEL 142 MMOL/L (136-145); TOTAL PROTEIN 4.9 G/DL (5.7-8.2)
[2022-11-19] MEDS ORDERED: CEFEPIME HCL 1 GM in D5W MINI-BAG PLUS 50 ML IV SCH (07:45)
[2022-11-19] MEDS ORDERED: POTASSIUM CHLORIDE 10MEQ SR TABLET PO ONE ×2 (08:00→10:00)
[2022-11-19] MEDS: predniSONE 20 MG TAB PO SCH (08:38)
[2022-11-19] MEDS: PANTOPRAZOLE 40MG TAB (PROTONIX) PO SCH (08:39)
[2022-11-19] MEDS: METOPROLOL SUCC (TopROL XL) 50MG **XL** TAB PO SCH ×2 (08:39→21:44)
[2022-11-19] MEDS: FERROUS SULFATE 325MG TAB PO SCH ×2 (08:39→21:43)
[2022-11-19] MEDS: LOSARTAN 50MG TABLET PO SCH ×2 (08:39→21:44)
[2022-11-19] MEDS: DOCUSATE SODIUM 100MG CAPSULE PO SCH (08:39)
[2022-11-19] MEDS: CEFEPIME HCL 2 GM in D5W MINI-BAG PLUS 50 ML IV SCH ×2 (10:25→21:45)
[2022-11-19] MEDS: DEXTROMETHORPHAN 60MG/10ML SUSP 90ML BTL(DELSYM) PO SCH ×2 (10:26→21:44)
[2022-11-19 13:09] LABS: HEPATITIS B SURFACE ANTIGEN NEGATIVE (NEGATIVE)
[2022-11-19 13:30] LABS: HEPATITIS B CORE ANTIBODY IGM NEGATIVE (NEGATIVE)
[2022-11-19 13:31] LABS: HEPATITIS C VIRUS ABY INDEX 0.1 INDEX (<0.8)
[2022-11-19 14:25] VITALS: BP 112/59
[2022-11-19] MEDS: SIMVASTATIN 10 MG TAB PO SCH (21:43)
[2022-11-19] MEDS: TAMSULOSIN 0.4 MG CAP PO SCH (21:43)
[2022-11-19] MEDS: FINASTERIDE 5MG TAB PO SCH (21:43)
[2022-11-19 22:00] VITALS: BP 125/58
[2022-11-20 05:33] VITALS: BP 123/62
[2022-11-20 06:22] LABS: HEMATOCRIT 36.5 % (42.0-52.0); MEAN CORPUSCULAR HEMOGLOBIN 28.9 pg (27.0-33.0); MEAN CORPUSCULAR HGB CONC 30.1 g/dl (32.0-36.5); MEAN CORPUSCULAR VOLUME 96.1 fl (80.0-96.0); PLATELET COUNT, AUTOMATED 267 10^3/uL (150-450); WHITE BLOOD COUNT 15.6 10^3/uL (4.0-10.0)
[2022-11-20 06:46] LABS: ALBUMIN 1.4 G/DL (3.2-5.2); ALKALINE PHOSPHATASE 183 U/L (46-116); ALT/SGPT 61 U/L (7.0-40); AST/SGOT 54 U/L (<34); BILIRUBIN,TOTAL 0.6 MG/DL (0.3-1.2); BLOOD UREA NITROGEN 18 MG/DL (9-23); CALCIUM LEVEL 8.3 MG/DL (8.3-10.6); CARBON DIOXIDE LEVEL 19 MMOL/L (20-31); CHLORIDE LEVEL 113 MMOL/L (98-107); CREATININE FOR GFR 0.67 MG/DL (0.70-1.30); GLOMERULAR FILTRATION RATE > 60.0 (>42); GLUCOSE, FASTING 139 MG/DL (74-106); MAGNESIUM LEVEL 1.9 MG/DL (1.8-2.4); POTASSIUM SERUM 4.5 MMOL/L (3.5-5.1); SODIUM LEVEL 141 MMOL/L (136-145); TOTAL PROTEIN 4.7 G/DL (5.7-8.2)
[2022-11-20] MEDS: CEFEPIME HCL 2 GM in D5W MINI-BAG PLUS 50 ML IV SCH ×2 (09:41→22:27)
[2022-11-20] MEDS: predniSONE 20 MG TAB PO SCH (09:43)
[2022-11-20] MEDS: FERROUS SULFATE 325MG TAB PO SCH ×2 (09:43→21:20)
[2022-11-20] MEDS: LOSARTAN 50MG TABLET PO SCH ×2 (09:43→21:22)
[2022-11-20] MEDS: METOPROLOL SUCC *XL* 25MG TAB (TopROL *XL*) PO SCH ×2 (09:45→21:22)
[2022-11-20] MEDS: DEXTROMETHORPHAN 60MG/10ML SUSP 90ML BTL(DELSYM) PO SCH ×2 (09:46→21:21)
[2022-11-20] MEDS: PANTOPRAZOLE 40MG TAB (PROTONIX) PO SCH (09:47)
[2022-11-20] MEDS: ACETAMINOPHEN TAB 650MG DOSE (2X325MG) PO PRN (13:22)
[2022-11-20 21:08] VITALS: BP 127/59
[2022-11-20] MEDS: TAMSULOSIN 0.4 MG CAP PO SCH (21:20)
[2022-11-20] MEDS: SIMVASTATIN 10 MG TAB PO SCH (21:20)
[2022-11-20] MEDS: FINASTERIDE 5MG TAB PO SCH (21:21)
[2022-11-21] MEDS ORDERED: CALCIUM CARBONATE 500 MG CHEW U/D PO ONE (02:00)
[2022-11-21 06:00] VITALS: BP 131/68
[2022-11-21 06:04] LABS: HEMATOCRIT 31.8 % (42.0-52.0); HEMOGLOBIN 10.2 g/dl (13.5-17.5); MEAN CORPUSCULAR HEMOGLOBIN 29.1 pg (27.0-33.0); MEAN CORPUSCULAR HGB CONC 32.1 g/dl (32.0-36.5); MEAN CORPUSCULAR VOLUME 90.9 fl (80.0-96.0); PLATELET COUNT, AUTOMATED 291 10^3/uL (150-450); WHITE BLOOD COUNT 14.4 10^3/uL (4.0-10.0)
[2022-11-21 06:28] LABS: ALBUMIN 1.4 G/DL (3.2-5.2); ALKALINE PHOSPHATASE 229 U/L (46-116); ALT/SGPT 144 U/L (7.0-40); AST/SGOT 110 U/L (<34); BILIRUBIN,TOTAL 0.6 MG/DL (0.3-1.2); BLOOD UREA NITROGEN 19 MG/DL (9-23); CALCIUM LEVEL 8.2 MG/DL (8.3-10.6); CARBON DIOXIDE LEVEL 23 MMOL/L (20-31); CHLORIDE LEVEL 110 MMOL/L (98-107); CREATININE FOR GFR 0.67 MG/DL (0.70-1.30); GLOMERULAR FILTRATION RATE > 60.0 (>42); GLUCOSE, FASTING 137 MG/DL (74-106); SODIUM LEVEL 142 MMOL/L (136-145); TOTAL PROTEIN 4.8 G/DL (5.7-8.2)
[2022-11-21] MEDS: DEXTROMETHORPHAN 60MG/10ML SUSP 90ML BTL(DELSYM) PO SCH ×2 (09:26→20:25)
[2022-11-21] MEDS: FERROUS SULFATE 325MG TAB PO SCH ×2 (09:27→20:29)
[2022-11-21] MEDS: LOSARTAN 50MG TABLET PO SCH ×2 (09:29→20:29)
[2022-11-21] MEDS: predniSONE 20 MG TAB PO SCH (09:30)
[2022-11-21] MEDS: METOPROLOL SUCC *XL* 25MG TAB (TopROL *XL*) PO SCH ×2 (09:30→20:28)
[2022-11-21] MEDS: NS 1,000 ML IV SCH ×2 (09:30→20:29)
[2022-11-21] MEDS: PANTOPRAZOLE 40MG TAB (PROTONIX) PO SCH (09:31)
[2022-11-21] MEDS: CEFEPIME HCL 2 GM in D5W MINI-BAG PLUS 50 ML IV SCH ×2 (10:21→18:23)
[2022-11-21 14:00] VITALS: BP 122/68
[2022-11-21] MEDS: SIMVASTATIN 10 MG TAB PO SCH (20:28)
[2022-11-21] MEDS: FINASTERIDE 5MG TAB PO SCH (20:29)
[2022-11-21] MEDS: TAMSULOSIN 0.4 MG CAP PO SCH (20:29)
[2022-11-21 20:30] VITALS: BP 150/74
[2022-11-22] MEDS: CEFEPIME HCL 2 GM in D5W MINI-BAG PLUS 50 ML IV SCH ×3 (02:37→17:44)
[2022-11-22 05:34] VITALS: BP 133/76
[2022-11-22 06:31] LABS: HEMATOCRIT 33.3 % (42.0-52.0); HEMOGLOBIN 10.7 g/dl (13.5-17.5); MEAN CORPUSCULAR HEMOGLOBIN 29.6 pg (27.0-33.0); MEAN CORPUSCULAR HGB CONC 32.1 g/dl (32.0-36.5); PLATELET COUNT, AUTOMATED 253 10^3/uL (150-450); RED BLOOD COUNT 3.62 10^6/uL (4.30-6.10); WHITE BLOOD COUNT 12.6 10^3/uL (4.0-10.0)
[2022-11-22 06:57] LABS: ALBUMIN 1.3 G/DL (3.2-5.2); ALKALINE PHOSPHATASE 218 U/L (46-116); ALT/SGPT 101 U/L (7.0-40); AST/SGOT 53 U/L (<34); BILIRUBIN,TOTAL 0.6 MG/DL (0.3-1.2); BLOOD UREA NITROGEN 17 MG/DL (9-23); CALCIUM LEVEL 7.9 MG/DL (8.3-10.6); CARBON DIOXIDE LEVEL 22 MMOL/L (20-31); CHLORIDE LEVEL 110 MMOL/L (98-107); CREATININE FOR GFR 0.64 MG/DL (0.70-1.30); GLOMERULAR FILTRATION RATE > 60.0 (>42); GLUCOSE, FASTING 107 MG/DL (74-106); POTASSIUM SERUM 3.9 MMOL/L (3.5-5.1); SODIUM LEVEL 140 MMOL/L (136-145); TOTAL PROTEIN 4.7 G/DL (5.7-8.2)
[2022-11-22] MEDS: ALBUTEROL SULFATE 2.5MG/0.5ML INH NEB SOLN NEB PRN (07:59)
[2022-11-22 08:00] VITALS: BP 138/75
[2022-11-22] MEDS: LOSARTAN 50MG TABLET PO SCH ×2 (09:26→21:05)
[2022-11-22] MEDS: PANTOPRAZOLE 40MG TAB (PROTONIX) PO SCH (09:27)
[2022-11-22] MEDS: predniSONE 20 MG TAB PO SCH (09:27)
[2022-11-22] MEDS: DEXTROMETHORPHAN 60MG/10ML SUSP 90ML BTL(DELSYM) PO SCH ×2 (09:27→21:06)
[2022-11-22] MEDS: FERROUS SULFATE 325MG TAB PO SCH ×2 (09:29→21:05)
[2022-11-22] MEDS: METOPROLOL SUCC *XL* 25MG TAB (TopROL *XL*) PO SCH ×2 (09:29→21:06)
[2022-11-22] MEDS: ACETAMINOPHEN TAB 650MG DOSE (2X325MG) PO PRN (09:29)
[2022-11-22] MEDS: MIRALAX *UNIT DOSE* 17GM PACKET PO PRN (09:36)
[2022-11-22 14:00] VITALS: BP 111/52
[2022-11-22] MEDS: metroNIDAZOLE (FLAGYL) 500MG TABLET PO SCH ×2 (15:26→21:04)
[2022-11-22 19:47] VITALS: BP 150/67
[2022-11-22] MEDS: TAMSULOSIN 0.4 MG CAP PO SCH (21:04)
[2022-11-22] MEDS: SIMVASTATIN 10 MG TAB PO SCH (21:05)
[2022-11-22] MEDS: FINASTERIDE 5MG TAB PO SCH (21:05)
[2022-11-23] MEDS: CEFEPIME HCL 2 GM in D5W MINI-BAG PLUS 50 ML IV SCH ×3 (02:36→18:28)
[2022-11-23 05:16] VITALS: BP 155/79
[2022-11-23] MEDS: metroNIDAZOLE (FLAGYL) 500MG TABLET PO SCH ×3 (05:19→20:36)
[2022-11-23] MEDS: ALBUTEROL SULFATE 2.5MG/0.5ML INH NEB SOLN NEB PRN (05:28)
[2022-11-23 06:21] LABS: ALBUMIN 1.6 G/DL (3.2-5.2); ALKALINE PHOSPHATASE 246 U/L (46-116); ALT/SGPT 87 U/L (7.0-40); AST/SGOT 44 U/L (<34); BILIRUBIN,TOTAL 0.8 MG/DL (0.3-1.2); BLOOD UREA NITROGEN 17 MG/DL (9-23); CALCIUM LEVEL 7.9 MG/DL (8.3-10.6); CARBON DIOXIDE LEVEL 21 MMOL/L (20-31); CHLORIDE LEVEL 109 MMOL/L (98-107); CREATININE FOR GFR 0.73 MG/DL (0.70-1.30); GLOMERULAR FILTRATION RATE > 60.0 (>42); GLUCOSE, FASTING 92 MG/DL (74-106); MAGNESIUM LEVEL 1.8 MG/DL (1.8-2.4); POTASSIUM SERUM 4.5 MMOL/L (3.5-5.1); SODIUM LEVEL 141 MMOL/L (136-145); TOTAL PROTEIN 5.4 G/DL (5.7-8.2)
[2022-11-23 07:21] LABS: BASO % 0.1 % (0.0-1.0); HEMATOCRIT 32.7 % (42.0-52.0); HEMOGLOBIN 10.6 g/dl (13.5-17.5); LYMPH # 0.5 10^3/uL (1.5-5.0); LYMPH % 3.2 % (24.0-44.0); MEAN CORPUSCULAR HGB CONC 32.4 g/dl (32.0-36.5); MEAN CORPUSCULAR VOLUME 89.3 fl (80.0-96.0); MONO # 0.7 10^3/uL (0.0-0.8); MONO % 4.9 % (2.0-8.0); NEUTROPHILS # 13.7 10^3/uL (1.5-8.5); NEUTROPHILS % 91.1 % (36.0-66.0); PLATELET COUNT, AUTOMATED 235 10^3/uL (150-450); RED BLOOD COUNT 3.66 10^6/uL (4.30-6.10)
[2022-11-23] MEDS: PANTOPRAZOLE 40MG TAB (PROTONIX) PO SCH (09:11)
[2022-11-23] MEDS: LOSARTAN 50MG TABLET PO SCH ×2 (09:11→20:35)
[2022-11-23] MEDS: DEXTROMETHORPHAN 60MG/10ML SUSP 90ML BTL(DELSYM) PO SCH ×2 (09:11→20:37)
[2022-11-23] MEDS: predniSONE 20 MG TAB PO SCH (09:12)
[2022-11-23] MEDS: METOPROLOL SUCC *XL* 25MG TAB (TopROL *XL*) PO SCH ×2 (09:12→20:36)
[2022-11-23] MEDS: ACETAMINOPHEN TAB 650MG DOSE (2X325MG) PO PRN (09:13)
[2022-11-23] MEDS: FERROUS SULFATE 325MG TAB PO SCH ×2 (09:13→20:36)
[2022-11-23 14:00] VITALS: BP 112/56
[2022-11-23 14:46] VITALS: BP 106/52
[2022-11-23] MEDS: FINASTERIDE 5MG TAB PO SCH (20:36)
[2022-11-23] MEDS: SIMVASTATIN 10 MG TAB PO SCH (20:36)
[2022-11-23] MEDS: TAMSULOSIN 0.4 MG CAP PO SCH (20:36)
[2022-11-23] MEDS: BREO INH SCH (21:22)
[2022-11-23 22:00] VITALS: BP 133/72
[2022-11-24] MEDS: CEFEPIME HCL 2 GM in D5W MINI-BAG PLUS 50 ML IV SCH ×3 (01:19→18:04)
[2022-11-24] MEDS: metroNIDAZOLE (FLAGYL) 500MG TABLET PO SCH ×3 (04:53→20:48)
[2022-11-24 06:06] LABS: BASO % 0.1 % (0.0-1.0); EOS % 0.1 % (0.0-3.0); HEMATOCRIT 34.2 % (42.0-52.0); HEMOGLOBIN 10.8 g/dl (13.5-17.5); LYMPH # 0.5 10^3/uL (1.5-5.0); MEAN CORPUSCULAR HGB CONC 31.6 g/dl (32.0-36.5); MEAN CORPUSCULAR VOLUME 91.7 fl (80.0-96.0); MONO # 0.7 10^3/uL (0.0-0.8); MONO % 3.9 % (2.0-8.0); NEUTROPHILS # 16.4 10^3/uL (1.5-8.5); NEUTROPHILS % 92.1 % (36.0-66.0); PLATELET COUNT, AUTOMATED 257 10^3/uL (150-450); RED BLOOD COUNT 3.73 10^6/uL (4.30-6.10); WHITE BLOOD COUNT 17.8 10^3/uL (4.0-10.0)
[2022-11-24 07:04] LABS: ALBUMIN 1.4 G/DL (3.2-5.2); ALKALINE PHOSPHATASE 197 U/L (46-116); ALT/SGPT 53 U/L (7.0-40); AST/SGOT 23 U/L (<34); BILIRUBIN,TOTAL 0.6 MG/DL (0.3-1.2); BLOOD UREA NITROGEN 17 MG/DL (9-23); CALCIUM LEVEL 7.9 MG/DL (8.3-10.6); CARBON DIOXIDE LEVEL 25 MMOL/L (20-31); CHLORIDE LEVEL 106 MMOL/L (98-107); CREATININE FOR GFR 0.72 MG/DL (0.70-1.30); GLOMERULAR FILTRATION RATE > 60.0 (>42); GLUCOSE, FASTING 95 MG/DL (74-106); MAGNESIUM LEVEL 1.8 MG/DL (1.8-2.4); POTASSIUM SERUM 3.5 MMOL/L (3.5-5.1); SODIUM LEVEL 140 MMOL/L (136-145); TOTAL PROTEIN 4.8 G/DL (5.7-8.2)
[2022-11-24] MEDS: DEXTROMETHORPHAN 60MG/10ML SUSP 90ML BTL(DELSYM) PO SCH ×2 (09:21→20:47)
[2022-11-24] MEDS: predniSONE 20 MG TAB PO SCH (09:22)
[2022-11-24] MEDS: METOPROLOL SUCC *XL* 25MG TAB (TopROL *XL*) PO SCH ×2 (09:22→20:48)
[2022-11-24] MEDS: FERROUS SULFATE 325MG TAB PO SCH ×2 (09:22→20:47)
[2022-11-24] MEDS: PANTOPRAZOLE 40MG TAB (PROTONIX) PO SCH (09:22)
[2022-11-24] MEDS: LOSARTAN 50MG TABLET PO SCH ×2 (09:23→20:47)
[2022-11-24 14:00] VITALS: BP 107/60
[2022-11-24] MEDS: TAMSULOSIN 0.4 MG CAP PO SCH (20:47)
[2022-11-24] MEDS: FINASTERIDE 5MG TAB PO SCH (20:47)
[2022-11-24] MEDS: BREO INH SCH (20:47)
[2022-11-24] MEDS: SIMVASTATIN 10 MG TAB PO SCH (20:48)
[2022-11-24 22:01] VITALS: BP 110/62
[2022-11-25] MEDS: CEFEPIME HCL 2 GM in D5W MINI-BAG PLUS 50 ML IV SCH ×3 (01:11→17:38)
[2022-11-25] MEDS: metroNIDAZOLE (FLAGYL) 500MG TABLET PO SCH ×3 (05:12→22:16)
[2022-11-25 06:43] LABS: BASO % 0.1 % (0.0-1.0); HEMATOCRIT 37.4 % (42.0-52.0); HEMOGLOBIN 11.3 g/dl (13.5-17.5); LYMPH # 0.7 10^3/uL (1.5-5.0); LYMPH % 2.9 % (24.0-44.0); MEAN CORPUSCULAR HEMOGLOBIN 28.3 pg (27.0-33.0); MEAN CORPUSCULAR HGB CONC 30.2 g/dl (32.0-36.5); MEAN CORPUSCULAR VOLUME 93.7 fl (80.0-96.0); MONO # 0.7 10^3/uL (0.0-0.8); MONO % 3.1 % (2.0-8.0); NEUTROPHILS # 21.3 10^3/uL (1.5-8.5); PLATELET COUNT, AUTOMATED 230 10^3/uL (150-450); RED BLOOD COUNT 3.99 10^6/uL (4.30-6.10); WHITE BLOOD COUNT 22.9 10^3/uL (4.0-10.0)
[2022-11-25 06:52] VITALS: BP 111/59
[2022-11-25 07:00] LABS: ALBUMIN 1.3 G/DL (3.2-5.2); ALKALINE PHOSPHATASE 178 U/L (46-116); ALT/SGPT 35 U/L (7.0-40); AST/SGOT 20 U/L (<34); BILIRUBIN,TOTAL 0.5 MG/DL (0.3-1.2); BLOOD UREA NITROGEN 22 MG/DL (9-23); CALCIUM LEVEL 7.9 MG/DL (8.3-10.6); CARBON DIOXIDE LEVEL 22 MMOL/L (20-31); CHLORIDE LEVEL 107 MMOL/L (98-107); CREATININE FOR GFR 0.74 MG/DL (0.70-1.30); GLOMERULAR FILTRATION RATE > 60.0 (>42); GLUCOSE, FASTING 99 MG/DL (74-106); MAGNESIUM LEVEL 2.1 MG/DL (1.8-2.4); POTASSIUM SERUM 3.9 MMOL/L (3.5-5.1); SODIUM LEVEL 140 MMOL/L (136-145); TOTAL PROTEIN 4.8 G/DL (5.7-8.2)
[2022-11-25 08:07] VITALS: BP 115/61
[2022-11-25] MEDS: MIRALAX *UNIT DOSE* 17GM PACKET PO PRN (10:46)
[2022-11-25] MEDS: LOSARTAN 50MG TABLET PO SCH ×2 (10:49→22:16)
[2022-11-25] MEDS: predniSONE 20 MG TAB PO SCH (10:50)
[2022-11-25] MEDS: FERROUS SULFATE 325MG TAB PO SCH ×2 (10:50→22:14)
[2022-11-25] MEDS: PANTOPRAZOLE 40MG TAB (PROTONIX) PO SCH (10:50)
[2022-11-25] MEDS: METOPROLOL SUCC *XL* 25MG TAB (TopROL *XL*) PO SCH ×2 (10:53→22:17)
[2022-11-25] MEDS: DEXTROMETHORPHAN 60MG/10ML SUSP 90ML BTL(DELSYM) PO SCH ×2 (10:53→22:15)
[2022-11-25 14:30] VITALS: BP 103/62
[2022-11-25] MEDS: BREO INH SCH (21:00)
[2022-11-25 21:30] VITALS: BP 130/65
[2022-11-25] MEDS: TAMSULOSIN 0.4 MG CAP PO SCH (22:13)
[2022-11-25] MEDS: SIMVASTATIN 10 MG TAB PO SCH (22:16)
[2022-11-25] MEDS: FINASTERIDE 5MG TAB PO SCH (22:17)
[2022-11-26 05:37] VITALS: BP 121/75
[2022-11-26] MEDS: metroNIDAZOLE (FLAGYL) 500MG TABLET PO SCH ×3 (06:17→22:12)
[2022-11-26 07:43] LABS: BASO % 0.2 % (0.0-1.0); HEMATOCRIT 34.6 % (42.0-52.0); LYMPH # 0.6 10^3/uL (1.5-5.0); LYMPH % 2.4 % (24.0-44.0); MEAN CORPUSCULAR HEMOGLOBIN 28.9 pg (27.0-33.0); MEAN CORPUSCULAR HGB CONC 31.8 g/dl (32.0-36.5); MEAN CORPUSCULAR VOLUME 90.8 fl (80.0-96.0); MONO # 0.7 10^3/uL (0.0-0.8); MONO % 2.9 % (2.0-8.0); NEUTROPHILS # 23.1 10^3/uL (1.5-8.5); NEUTROPHILS % 93.6 % (36.0-66.0); PLATELET COUNT, AUTOMATED 279 10^3/uL (150-450); RED BLOOD COUNT 3.81 10^6/uL (4.30-6.10); WHITE BLOOD COUNT 24.7 10^3/uL (4.0-10.0)
[2022-11-26 08:10] LABS: ALBUMIN 1.3 G/DL (3.2-5.2); ALKALINE PHOSPHATASE 157 U/L (46-116); ALT/SGPT 31 U/L (7.0-40); AST/SGOT 14 U/L (<34); BILIRUBIN,TOTAL 0.6 MG/DL (0.3-1.2); BLOOD UREA NITROGEN 24 MG/DL (9-23); CALCIUM LEVEL 8.1 MG/DL (8.3-10.6); CARBON DIOXIDE LEVEL 26 MMOL/L (20-31); CHLORIDE LEVEL 106 MMOL/L (98-107); CREATININE FOR GFR 0.77 MG/DL (0.70-1.30); GLOMERULAR FILTRATION RATE > 60.0 (>42); GLUCOSE, FASTING 95 MG/DL (74-106); SODIUM LEVEL 138 MMOL/L (136-145); TOTAL PROTEIN 4.8 G/DL (5.7-8.2)
[2022-11-26] MEDS: METOPROLOL SUCC *XL* 25MG TAB (TopROL *XL*) PO SCH ×2 (09:43→22:14)
[2022-11-26] MEDS: PANTOPRAZOLE 40MG TAB (PROTONIX) PO SCH (09:45)
[2022-11-26] MEDS: FERROUS SULFATE 325MG TAB PO SCH ×2 (09:45→22:13)
[2022-11-26] MEDS: predniSONE 20 MG TAB PO SCH (09:45)
[2022-11-26] MEDS: LevoFLOXacin 750 MG TABLET PO SCH (09:45)
[2022-11-26] MEDS: LOSARTAN 50MG TABLET PO SCH ×2 (09:46→22:12)
[2022-11-26] MEDS: DEXTROMETHORPHAN 60MG/10ML SUSP 90ML BTL(DELSYM) PO SCH ×2 (09:47→22:14)
[2022-11-26] MEDS: ACETAMINOPHEN TAB 650MG DOSE (2X325MG) PO PRN (09:53)
[2022-11-26 15:06] VITALS: BP 101/49
[2022-11-26 22:00] VITALS: BP 136/64
[2022-11-26] MEDS: FINASTERIDE 5MG TAB PO SCH (22:13)
[2022-11-26] MEDS: SIMVASTATIN 10 MG TAB PO SCH (22:13)
[2022-11-26] MEDS: TAMSULOSIN 0.4 MG CAP PO SCH (22:14)
[2022-11-26] MEDS: BREO INH SCH (22:15)
[2022-11-27] MEDS: metroNIDAZOLE (FLAGYL) 500MG TABLET PO SCH (05:24)
[2022-11-27] MEDS: LevoFLOXacin 750 MG TABLET PO SCH (05:24)
[2022-11-27 06:00] VITALS: BP 134/61
[2022-11-27 06:54] LABS: BASO % 0.1 % (0.0-1.0); HEMATOCRIT 32.3 % (42.0-52.0); HEMOGLOBIN 10.3 g/dl (13.5-17.5); LYMPH # 0.6 10^3/uL (1.5-5.0); MEAN CORPUSCULAR HEMOGLOBIN 28.9 pg (27.0-33.0); MEAN CORPUSCULAR HGB CONC 31.9 g/dl (32.0-36.5); MEAN CORPUSCULAR VOLUME 90.7 fl (80.0-96.0); MONO % 3.3 % (2.0-8.0); NEUTROPHILS % 93.6 % (36.0-66.0); PLATELET COUNT, AUTOMATED 262 10^3/uL (150-450); RED BLOOD COUNT 3.56 10^6/uL (4.30-6.10)
[2022-11-27 07:23] LABS: ALBUMIN 1.2 G/DL (3.2-5.2); ALKALINE PHOSPHATASE 159 U/L (46-116); ALT/SGPT 25 U/L (7.0-40); AST/SGOT 14 U/L (<34); BILIRUBIN,TOTAL 0.4 MG/DL (0.3-1.2); BLOOD UREA NITROGEN 23 MG/DL (9-23); CARBON DIOXIDE LEVEL 25 MMOL/L (20-31); CHLORIDE LEVEL 104 MMOL/L (98-107); CREATININE FOR GFR 0.71 MG/DL (0.70-1.30); GLOMERULAR FILTRATION RATE > 60.0 (>42); GLUCOSE, FASTING 101 MG/DL (74-106); MAGNESIUM LEVEL 1.9 MG/DL (1.8-2.4); POTASSIUM SERUM 3.9 MMOL/L (3.5-5.1); SODIUM LEVEL 136 MMOL/L (136-145); TOTAL PROTEIN 4.6 G/DL (5.7-8.2)
[2022-11-27] MEDS: DEXTROMETHORPHAN 60MG/10ML SUSP 90ML BTL(DELSYM) PO SCH (09:12)
[2022-11-27 09:14] VITALS: BP 134/61
[2022-11-27] MEDS: METOPROLOL SUCC *XL* 25MG TAB (TopROL *XL*) PO SCH (09:14)
[2022-11-27] MEDS: predniSONE 20 MG TAB PO SCH (09:14)
[2022-11-27] MEDS: FERROUS SULFATE 325MG TAB PO SCH (09:15)
[2022-11-27] MEDS: LOSARTAN 50MG TABLET PO SCH (09:15)
[2022-11-27] MEDS: PANTOPRAZOLE 40MG TAB (PROTONIX) PO SCH (09:16)
[2022-11-27] MEDS ORDERED: FERR1TAB8 PO (09:18)
[2022-11-27] MEDS ORDERED: LEVO1TAB40 PO (09:18)
[2022-11-27] MEDS ORDERED: PANT40TA29 PO (09:18)
[2022-11-27] MEDS ORDERED: METO1TAB32 PO (09:18)
[2022-11-27] MEDS ORDERED: PRED20TA PO (09:18)
[2022-11-27] MEDS ORDERED: METR-265 PO (09:18)
[2022-11-27] MEDS ORDERED: DELS30LI8 PO (09:18)
[2022-11-29] MEDS ORDERED: NYST-38 PO (12:49)
== END 2022-11-27 12:00 | disposition home or self-care (01) | DRG 177 ==
LOC: M ICU 21:01 → M MS5PR 11-17 11:35
PROVIDERS: ADMIT Internal Medicine Pulmonary Disease; ATTEND Family Medicine
DX: J15.5 Pneumonia due to Escherichia coli (principal); J96.01 Acute respiratory failure with hypoxia; R04.2 Hemoptysis; J44.1 Chronic obstructive pulmonary disease with (acute) exacerbation; J44.0 Chronic obstructive pulmonary disease with (acute) lower respiratory infection; C34.31 Malignant neoplasm of lower lobe, right bronchus or lung; D68.32 Hemorrhagic disorder due to extrinsic circulating anticoagulants; D64.9 Anemia, unspecified; G47.33 Obstructive sleep apnea (adult) (pediatric); E78.5 Hyperlipidemia, unspecified; I10 Essential (primary) hypertension; I48.91 Unspecified atrial fibrillation; I25.10 Atherosclerotic heart disease of native coronary artery without angina pectoris; E83.42 Hypomagnesemia; N40.0 Benign prostatic hyperplasia without lower urinary tract symptoms; R74.01 Elevation of levels of liver transaminase levels; I73.9 Peripheral vascular disease, unspecified; K21.9 Gastro-esophageal reflux disease without esophagitis; Z95.5 Presence of coronary angioplasty implant and graft; Z20.822 Contact with and (suspected) exposure to COVID-19; Z79.01 Long term (current) use of anticoagulants; Z79.82 Long term (current) use of aspirin; Z79.2 Long term (current) use of antibiotics; Z79.899 Other long term (current) drug therapy; Z87.891 Personal history of nicotine dependence; Z95.0 Presence of cardiac pacemaker; Z66 Do not resuscitate; Z99.81 Dependence on supplemental oxygen; Z90.49 Acquired absence of other specified parts of digestive tract; Z85.828 Personal history of other malignant neoplasm of skin